=== PATIENT | female | born 1965 | race Hispanic/Latino ===

== ENCOUNTER 2021-04-23 07:57 | Day surgery (SDC) | payer OTHER ==
[2021-04-22 11:39] VITALS: BP 119/71
[2021-04-23] VITALS (17 sets, daily range): BP systolic 110–123; BP diastolic 61–77
[~2021-04-23] VITALS: Ht 157.5 cm; Wt 58.9 kg
[~2021-04-23 07:57] MED LIST: ACET-2743 PO; APIX2.5T PO; CHOL100046 PO; CITA-107 PO; DENO60DI SQ; DEXL30CA3 PO; ERGO500093 PO; EVOL140S2 SQ; FOLI20CA PO; ICOS1CAP PO; LINA290C PO; NALT50TA PO; PREG75 PO; SUCR1TAB2 PO; UBID100C10 PO; VITA-395 PO; tumeric PO
[2021-04-23] MEDS ORDERED: 0.9%NACL 1000ML 1,000 ML IV ONE (08:23)
[2021-04-23] MEDS: CEFAZOLIN SODIUM 1 GM VIAL IVP SCH ×2 (09:13→12:45)
[2021-04-23] MEDS ORDERED: VITAMIN E PO (09:21)
[2021-04-23] MEDS ORDERED: FOLIC ACID PO (09:21)
[2021-04-23] MEDS ORDERED: ROPIVACAINE 0.5% 5MG/ML 30ML IJ ONE (11:23)
[2021-04-23] MEDS ORDERED: SUCCINYLCHOLINE CHLORIDE 20 MG/ML 10 ML VIAL ONE (11:27)
[2021-04-23] MEDS ORDERED: LIDOCAINE PF 100MG/5ML (2%) SYRINGE 5ML ONE (11:27)
[2021-04-23] MEDS ORDERED: PROPOFOL 10 MG/ML 20ML VIAL IV ONE (11:27)
[2021-04-23] MEDS ORDERED: ROCURONIUM 10MG/1ML SYR 10 MG/ML ML ONE (11:28)
[2021-04-23] MEDS ORDERED: FENTANYL CITRATE PF 50 MCG/1 ML 2ML VIAL ONE (11:28)
[2021-04-23] MEDS ORDERED: MIDAZOLAM HCL 1 MG/ML 2ML VIAL ONE (11:42)
[2021-04-23] MEDS ORDERED: EPHEDRINE SULFATE 50 MG/ML AMPULE ONE (12:39)
[2021-04-23] MEDS ORDERED: EPINEPHRINE 1 MG/ML 30ML VIAL IJ ONE (12:56)
[2021-04-23] MEDS ORDERED: CEFAZOLIN SODIUM 1 GM VIAL ONE (13:44)
[2021-04-23] MEDS ORDERED: GLYCOPYRROLATE 1 MG/5 ML SYRINGE ONE (14:26)
[2021-04-23] MEDS ORDERED: NEOSTIGMINE 5MG/5ML SYR IV ONE (14:26)
[2021-04-23] MEDS ORDERED: KETOROLAC 30MG VIAL (30MG/ML) ONE (14:28)
[2021-04-23] MEDS ORDERED: CEPH500B PO (14:37)
[2021-04-23] MEDS ORDERED: HYDR-4060 PO (14:37)
== END 2021-04-23 16:25 | disposition home or self-care (01) ==
LOC: DAH 07:57
PROVIDERS: ATTEND Orthopaedic Surgery
DX: S46.011A Strain of muscle(s) and tendon(s) of the rotator cuff of right shoulder, initial encounter (principal); Z20.822 Contact with and (suspected) exposure to COVID-19; E11.9 Type 2 diabetes mellitus without complications; G47.30 Sleep apnea, unspecified; M79.7 Fibromyalgia; E78.5 Hyperlipidemia, unspecified; E55.9 Vitamin D deficiency, unspecified; E78.1 Pure hyperglyceridemia; K21.00 Gastro-esophageal reflux disease with esophagitis, without bleeding; F32.9 Major depressive disorder, single episode, unspecified; M81.0 Age-related osteoporosis without current pathological fracture; Z86.718 Personal history of other venous thrombosis and embolism; Z98.51 Tubal ligation status; Z82.49 Family history of ischemic heart disease and other diseases of the circulatory system; Z83.3 Family history of diabetes mellitus; Z79.01 Long term (current) use of anticoagulants; Z79.899 Other long term (current) drug therapy; Z98.890 Other specified postprocedural states; W10.9XXA Fall (on) (from) unspecified stairs and steps, initial encounter; Y93.89 Activity, other specified; Y92.89 Other specified places as the place of occurrence of the external cause
CPT/HCPCS: 23412; 29824; 29826; 82948 ×2; 87635; A4215; A4221; A4222; A4223; A4565; A4600; A4649 ×3; A4663; A4930; A5120; A6204; C9803; G0168; J0171; J0330; J0690 ×2; J1885; J2001; J2250; J2704; J2710; J2795; J3010; J3490 ×2; J7030 ×2

== ENCOUNTER → 2021-09-09 | Outpatient (CLI) | payer OTHER ==
[~2021-09-09] MED LIST changes: -ACET-2743 PO; +CEPH500B PO; -FOLI20CA PO; +FOLIC ACID PO; +HYDR-4060 PO; +IOHEXOL 350 MG/ML 100ML INFUS..BTL IV ONE; -VITA-395 PO; +VITAMIN E PO
== END | disposition home or self-care (01) ==
LOC: RAH 08:49
PROVIDERS: ATTEND Internal Medicine Critical Care Medicine
DX: I26.99 Other pulmonary embolism without acute cor pulmonale (principal); I51.7 Cardiomegaly; M51.35 Other intervertebral disc degeneration, thoracolumbar region
CPT/HCPCS: 71275; Q9967

== ENCOUNTER → 2022-05-07 | Outpatient (CLI) | payer OTHER ==
[~2022-05-07] MED LIST changes: -IOHEXOL 350 MG/ML 100ML INFUS..BTL IV ONE
== END | disposition home or self-care (01) ==
LOC: RAH 10:46
PROVIDERS: ATTEND Internal Medicine Gastroenterology
DX: R10.13 Epigastric pain (principal)
CPT/HCPCS: 78264; A9541

== ENCOUNTER → 2025-10-03 | Outpatient (CLI) | payer OTHER ==
[~2025-10-03] MED LIST changes: +IOHEXOL 350 MG/ML 100ML INFUS..BTL IV ONE; -NALT50TA PO; +NALT50TA6 PO; -UBID100C10 PO; +UBID100C51 PO
--- NOTE | 2025-10-06 10:21 | CARDIOLOGY ---
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 A dedicated, limited window, coronary imaging protocol was used, with single breath-hold, retrospective ECG gating, and automated arrhythmia rejection. 100 cc of low osmolar contrast agent: Omnipaque 350 was delivered via a 18-gauge IV catheter in the right antecubital fossa, using a power injector and followed by 60 cc of normal saline bolus as a chaser. Collimated images were reformatted at 0.5 mm intervals, and sent to an offline independent workstation for interpretation, using 3D anatomic reconstructions: Curved multiplanar reconstructions, maximum intensity projections, and multiplanar imaging. No metoprolol was administered prior to scanning due to low baseline heart rate. 0.8 mg SL nitroglycerin was given. CORONARY ARTERY DESCRIPTIONS: The coronary arteries arise in normal position. Left main coronary artery: Normal caliber vessel that bifurcates into the LAD and LCx. No stenosis. Left anterior descending coronary artery: Normal caliber vessel and gives rise to diagonal and septal branches. No stenosis. Left circumflex coronary artery: Normal caliber, nondominant and gives rise to two OM branches. No stenosis. Right coronary artery: Large, dominant vessel giving rise to the PL and PDA branches. No stenosis. CAD-RADs: 0, absence of CAD. Thoracic Aorta: Normal diameter. Yanna Unger MD Cardiovascular Disease [facility] YANNA UNGER MD Oct 06, 2025 10:21
== END | disposition home or self-care (01) ==
LOC: RAH 07:37
PROVIDERS: ATTEND Internal Medicine Cardiovascular Disease
DX: R07.89 Other chest pain (principal)
CPT/HCPCS: 75574; Q9967